=== PATIENT | female | born 1985 | race Caucasian/White ===

== ENCOUNTER 2017-11-24 06:45 | Inpatient (IN) | payer BC ==
[2017-11-24] VITALS (47 sets, daily range): BP systolic 111–146; BP diastolic 56–81
[~2017-11-24] VITALS: Ht 160 cm; Wt 83.9 kg
[~2017-11-24 06:45] MED LIST: ACHD5005 PO; BIRTH CONTROL PILL PO
[2017-11-24] MEDS ORDERED: D5 LR IV SOLUTION 1,000 ML IV ONE ×2 (07:12→18:11)
--- OUTSIDE RECORDS SUMMARY | 2017-11-24 07:17 | XMS REPORT | Continuity of Care Document ---
Author Author [facility] Organization [facility] Address Unknown Phone Unavailable Support Name Relationship Address Phone JENNIFER DASH Next Of Kin [id number] [place] [id number] Insurance Providers Payer Name Policy Number Subscriber Name Relationship [facility] [id number] Qi Dash 01 Self / Same As Patient Advance Directives Directive Response Recorded Date Advance Directives N 12/02/12 11:19am Health Care Power of Environmental Quality Analyst N 12/02/12 11:19am Organ Donor Y 12/02/12 11:19am Problems No Known Problems or Medical conditions. Allergies, Adverse Reactions, Alerts Allergen Type Severity Reaction Last Updated No Known Drug Allergies 11/30/12 Medications Medication Dose Units Route Sig Qty Days Acetaminophen/Hydrocodone Bitart (Lorcet 5/325 Mg) 1 Tab PO Q4H 30 [ Control Pill] 1 Tab PO HS Response Recorded Date/Time Status not known Unknown Results Test Date Result Interp. Ref. Range Alanine Aminotransferase (ALT/SGPT) September 02, 2005 9:00pm 32 U/L N 30-65 Albumin September 02, 2005 9:00pm 4.6 G/DL N 3.4-5.0 Alkaline Phosphatase September 02, 2005 9:00pm 83 U/L N 50-136 Aspartate Amino Transf (AST/SGOT) September 02, 2005 9:00pm 19 U/L N 15-37 BUN/Creatinine Ratio September 02, 2005 9:00pm 8 - Basophils # (Auto) November 30, 2012 10:35am 0.0 10^3/uL N 0.0-0.1 Basophils (%) (Auto) November 30, 2012 10:35am 1 % N 0-10 Blood Urea Nitrogen September 02, 2005 9:00pm 7 MG/DL N 7-18 Calcium Level September 02, 2005 9:00pm 9.2 MG/DL N 8.5-10.1 Carbon Dioxide Level September 02, 2005 9:00pm 28 MMOL/L N 21-32 Chloride Level September 02, 2005 9:00pm 98 MMOL/L L 101-110 Creatinine September 02, 2005 9:00pm 0.9 MG/ DL N 0.6-1.3 Eosinophils # (Auto) November 30, 2012 10:35am 0.2 10^3/uL N 0.0-0.3 Eosinophils (%) (Auto) November 30, 2012 10:35am 2 % N 0-10 Glucose Level September 02, 2005 9:00pm 96 MG /DL N 70-126 Hematocrit November 30, 2012 10:35am 39 % N 35-52 Hemoglobin November 30, 2012 10:35am 13.0 G/DL N 11.5-16.0 Lymphocytes # (Auto) November 30, 2012 10:35am 1.8 X 10^3 N 1.0-4.0 Lymphocytes (%) (Auto) November 30, 2012 10:35am 26 % N 12-44 Mean Corpuscular Hemoglobin November 30, 2012 10:35am 31 PG N 25-34 Mean Corpuscular Hemoglobin Concent November 30, 2012 10: 35am 33 G/DL N 32-36 Mean Corpuscular Volume November 30, 2012 10:35am 92 FL N 80-99 Mean Platelet Volume November 30, 2012 10:35am 10.6 FL H 7.4-10.4 Monocytes # (Auto) November 30, 2012 10:35am 0.6 X 10^3 N 0.0-1.0 Monocytes (%) (Auto) November 30, 2012 10:35am 9 % N 0-12 Neutrophils # (Auto) November 30, 2012 10:35am 4.3 X 10^3 N 1.8-7.8 Neutrophils (%) (Auto) November 30, 2012 10:35am 62 % N 42-75 Platelet Count November 30, 2012 10:35am 279 10^3/uL N 130-400 Potassium Level October 12, 2005 5:30pm 3.6 MMOL/L N 3.6-5.0 Red Blood Count November 30, 2012 10:35am 4.26 10^6/uL L 4.35-5.85 Red Cell Distribution Width November 30, 2012 10:35am 12.3 % N 10.0-14.5 Sodium Level September 02, 2005 9:00pm 139 MMOL/L N 135-145 Thyroid Stimulating Hormone (TSH) September 02, 2005 9:00pm 1.03 ULU/ML N 0.34-5.60 Thyroxine (T4) September 02, 2005 9:00pm See report - Total Bilirubin September 02, 2005 9:00pm 0.5 MG/DL N 0.0-1.0 Total Protein October 12, 2005 5:30pm 7.9 G/DL N 6.4-8.2 Urine Bacteria September 02, 2005 9:00pm Negative - Urine Bilirubin September 02, 2005 9:00pm Negative - Urine Casts September 02, 2005 9:00pm None - Urine Clarity September 02, 2005 9:00pm Clear - Urine Color September 02, 2005 9:00pm Straw - Urine Crystals September 02, 2005 9:00pm None - Urine Glucose (UA) September 02, 2005 9:00pm Negative - Urine Ketones September 02, 2005 9:00pm Negative - Urine Leukocyte Esterase September 02, 2005 9:00pm Negative - Urine Mucus September 02, 2005 9:00pm Negative - Urine Nitrate September 02, 2005 9:00pm Negative - Urine Protein September 02, 2005 9:00pm Negative - Urine RBC September 02, 2005 9:00pm None / HPF - Urine Specific [place] September 02, 2005 9:00pm 1.005 L - Urine Squamous Epithelial Cells September 02, 2005 9:00pm 0-2 - Urine Urobilinogen September 02, 2005 9:00pm Normal MG/DL - Urine WBC September 02, 2005 9:00pm Rare / HPF - Urine pH September 02, 2005 9:00pm 7.0 - Vitamin B12 Level September 02, 2005 9:00pm See report - White Blood Count November 30, 2012 10:35am 6.9 10^3/uL N 4.3-11.0 Procedures Procedure Code Date MRSA Screen 11/30/12 Encounters Encounter Location Date/Time Departed Emergency Room [facility] 12 :00am
--- OUTSIDE RECORDS SUMMARY | 2017-11-24 07:17 | XMS REPORT | Continuity of Care Document ---
Author Author [facility] Organization [facility] Address Unknown Phone Unavailable Allergies There is no data. Medications There is no data. Problems There is no data. Procedures There is no data. Results There is no data. Encounters ACCT No. Visit Date/Time Discharge Status Pt. Type Provider Facility Loc./Unit Complaint [id number] 12/02/2012 10:21:00 12/02/2012 15:27:00 DIS Outpatient [id number] 11/30/2012 10:08:00 11/30/2012 23:59:59 CLS Outpatient
[2017-11-24] MEDS: D5 LR IV SOLUTION 1,000 ML IV SCH ×2 (07:26→14:01)
[2017-11-24] MEDS ORDERED: OXYTOCIN/NORMAL SALINE 500 ML IV SCH (07:41)
--- NOTE | 2017-11-24 07:43 | OB Bishop Score ---
Oconnor Score 8 VELMA GOSS MD Nov 24, 2017 7:43 am
--- NOTE | 2017-11-24 07:46 | History & Physical ---
History and Physical Date Seen by Provider: Nov 24, 2017 Time Seen by Provider: 07:43 This patient is a 32-year-old G1 white female with an EDC of 10 [phone] putting her at 38 weeks gestation. She was seen in clinic yesterday and found with an STEPHANI of 281. A week earlier her STEPHANI had been in the 140s. She's had no other problems with this . She denies rupture membranes or bleeding. She feels an occasional contraction. She feel baby moving. Her GBS culture done after 35 weeks gestation was negative. She presents now for induction of labor. Allergies are none Medications are vitamins patient takes a medication for ulcerative colitis Medical social and surgical histories are per the antepartum record HEENT exam is normal Neck is supple no lymphadenopathy no thyromegaly Abdomen is gravid soft nontender nondistended Extremities show no clubbing cyanosis. There is no Homans sign. Pelvic exam yesterday clinic showed a cervix that was a little bit more than once immune dilated 50 percent effaced -1-0 station cervix was soft and anterior. This equates to a Oconnor score of 8 Lab work is pending monitor shows normal heart rate pattern with occasional contractions Assessment and plan 38 weeks' gestation in a patient with polyhydramnios fairly recent & onset patient is admitted now for induction of labor. Anticipation is for vaginal delivery although plans preparations are in place for if needed Allergies and Home Medications Allergies Coded Allergies: No Known Drug Allergies (Unverified , 11/30/12) Home Medications Hydrocodone Bit/Acetaminophen 1 Tab Tablet, 1 TAB PO Q4H, (Reported) [ Control Pill] , 1 TAB PO HS, (Reported) Patient Home Medication List Home Medication List Reviewed: Yes VELMA GOSS MD Nov 24, 2017 7:46 am
[2017-11-24 08:03] LABS: BASOPHILS % (AUTO) 0 % (0-10); EOSINOPHILS # (AUTO) 0.2 10^3/uL (0.0-0.3); EOSINOPHILS % (AUTO) 1 % (0-10); HEMATOCRIT 33 % (35-52); HEMOGLOBIN 11.6 G/DL (11.5-16.0); LYMPHOCYTES # (AUTO) 2.5 X 10^3 (1.0-4.0); LYMPHOCYTES % (AUTO) 20 % (12-44); MEAN CORPUSCULAR HEMOGLOBIN 32 PG (25-34); MEAN CORPUSCULAR HGB CONC 35 G/DL (32-36); MEAN CORPUSCULAR VOLUME 93 FL (80-99); MEAN PLATELET VOLUME 11.2 FL (7.4-10.4); MONOCYTES # (AUTO) 1.2 X 10^3 (0.0-1.0); MONOCYTES % (AUTO) 9 % (0-12); NEUTROPHILS # (AUTO) 8.8 X 10^3 (1.8-7.8); NEUTROPHILS % (AUTO) 69 % (42-75); PLATELET COUNT 309 10^3/uL (130-400); RED BLOOD COUNT 3.61 10^6/uL (4.35-5.85); RED CELL DISTRIBUTION WIDTH 13.4 % (10.0-14.5); WHITE BLOOD COUNT 12.7 10^3/uL (4.3-11.0)
[2017-11-24] MEDS ORDERED: ALPR0.5T PO (08:52)
[2017-11-24] MEDS ORDERED: MESA1.2T2 PO (08:52)
[2017-11-24] MEDS ORDERED: PREN1TAB86 PO (08:52)
[2017-11-24] MEDS ORDERED: CATHETER FLUSH 10 ML SYR IV PRN (09:30)
[2017-11-24] MEDS ORDERED: FLU QUADRIvalent (5+ YOA) 2018-2019 (AFLURIA) 0.5 ML IM ONE (09:30)
[2017-11-24] MEDS ORDERED: SUFENTA 0.6MCG/ML BUPIVA 0.125 100 ML ONE (11:20)
[2017-11-24] MEDS ORDERED: LACTATED RINGERS 1,000 ML IV ONE ×3 (11:20→19:19)
[2017-11-24] MEDS: LACTATED RINGERS 1,000 ML IV SCH ×2 (11:30→18:43)
[2017-11-24] MEDS ORDERED: fentaNYL INJECTION 100 MCG/2 ML AMP ONE ×2 (11:49→17:37)
[2017-11-24] MEDS ORDERED: BUPIVACAINE 0.25% 30 ML (SENSORCAINE) VIAL ONE (11:50)
[2017-11-24] MEDS ORDERED: ONDANSETRON 4 MG/2 ML (SDV) Z0FRAN IV PRN ×2 (13:00→19:30)
[2017-11-24] MEDS ORDERED: EPIDURAL (SUFENTA 0.6MCG/ML BUPIVA 0.125%) 100 ML BAG EPI PRN (13:00)
[2017-11-24] MEDS ORDERED: diphenhydrAMINE 50 MG/ML INJ (BENADRYL) IV PRN ×2 (13:00→19:30)
[2017-11-24] MEDS ORDERED: NALOXONE 0.4 MG/ML 1 ML (NARCAN) VIAL IV PRN ×4 (13:00→19:30)
[2017-11-24] MEDS ORDERED: METOCLOPRAMIDE INJ 10 MG/2 ML (REGLAN) IV PRN ×2 (13:00→19:30)
[2017-11-24] MEDS ORDERED: LACTATED RINGERS 1,000 ML IV PRN (17:22)
[2017-11-24] MEDS ORDERED: FAMOTIDINE 20MG/2ML IV (PEPCID) IV ONE (17:30)
[2017-11-24] MEDS ORDERED: METOCLOPRAMIDE INJ 10 MG/2 ML (REGLAN) IV ONE (17:30)
[2017-11-24] MEDS ORDERED: CITRIC ACID/SOB CIT (BICITRA) 30 ML UDC PO ONE (17:30)
[2017-11-24] MEDS ORDERED: ceFAZolin 2 GM IV Premixed 50 ML IV ONE (17:30)
[2017-11-24] MEDS ORDERED: metroNIDAZOLE 500MG/100ML IVPB 100 ML IV ONE (17:30)
[2017-11-24] MEDS ORDERED: OXYTOCIN/NORMAL SALINE 500 ML IV ONE ×2 (17:37→19:02)
[2017-11-24] MEDS ORDERED: BUPIVACAINE SPINAL 0.75% (SENSORCAINE) 2 ML AMP ONE (17:56)
[2017-11-24] MEDS ORDERED: LIDOCAINE PF 2% 5 ML (XYLOCAINE) VIAL ONE (17:56)
[2017-11-24] MEDS ORDERED: KETOROLAC 30 MG/ML VIAL ONE (17:59)
[2017-11-24] MEDS ORDERED: MEPERIDINE (DEMEROL) INJ 100 MG/ML IM PRN (18:15)
[2017-11-24] MEDS ORDERED: TETANUS,DIPTH,PERTUSS P/F (BOOSTRIX) 0.5 ML VIAL IM ONE (18:15)
[2017-11-24] MEDS ORDERED: PROMETHAZINE INJ 25 MG/ML (PHENERGAN) AMP IM PRN (18:15)
[2017-11-24] MEDS ORDERED: ONDANSETRON 4 MG/2 ML (SDV) Z0FRAN IVP PRN (18:15)
[2017-11-24] MEDS ORDERED: MEASLES,MUMPS,RUBELLA 1 EA INJ SC ONE (18:15)
[2017-11-24] MEDS: OXYTOCIN/NORMAL SALINE 500 ML IV SCH ×2 (19:25→23:10)
[2017-11-24] MEDS: KETOROLAC 30 MG/ML VIAL IVP SCH (19:26)
[2017-11-24] MEDS ORDERED: fentaNYL INJECTION 100 MCG/2 ML AMP INJ ONE (19:30)
[2017-11-24] MEDS: DOCUSATE SODIUM 100 MG (COLACE) CAP PO SCH (22:35)
[2017-11-24] MEDS: oxyCODONE/APAP 10/325MG (PERCOCET 10) TABLET PO PRN (22:35)
[2017-11-25 00:22] VITALS: BP 118/70
[2017-11-25] MEDS: KETOROLAC 30 MG/ML VIAL IVP SCH ×3 (00:22→13:15)
--- NOTE | 2017-11-25 00:27 | OPERATIVE REPORT ---
DATE OF SERVICE: 11/24/2017 PREOPERATIVE DIAGNOSIS: Term at 38 weeks gestation in labor with failure to progress/CPD. POSTOPERATIVE DIAGNOSIS: Term at 38 weeks gestation in labor with failure to progress/CPD with persistent OP. OPERATIVE PROCEDURE: Primary low transverse delivery of a viable female with Apgars of 7 and 9 at 1 and 5 minutes respectively, weight of 6 pounds 14 ounces. Cord blood gas with a pH of 7.26 and a time of 1847. OPERATIVE DESCRIPTION: With the patient in the supine position under satisfactory spinal analgesia, she was prepped and draped in usual fashion for abdominal surgery. Harris catheter had been placed in the urinary bladder during labor that was left to dependent drainage. A Pfannenstiel incision was made through the skin with a scalpel. The patient's abdomen was entered in the usual manner. Bladder retractor placed in position, clean scalpel used to make a 4 cm hysterotomy incision transversely across the lower uterine segment that was extended by blunt dissection as well. Small amount of clear fluid was released on hysterotomy. Pritchett forceps were applied to facilitate the delivery of a vigorous viable female infant. Infant had stats as noted above. The was delivered from a straight OP position. The infant was bulb suctioned on delivery of the head and again on completion of delivery. The umbilical cord was doubly clamped and cut and the infant passed to Gifty Hernandez, the pediatric nurse in attendance for delivery. Cord bloods were obtained. Placenta delivered spontaneously. It was somewhat lobular scalloped appearing placenta with several almost accessory lobes. It was otherwise normal with a 3-vessel cord. The uterus was exteriorized and to wipe clean with a wet laparotomy sponge. Uterine incision closed with a running locked suture of 2-0 Vicryl. Hemostasis was satisfactory. However, the uterus was quite atonic and a modified B-Villalta suture was placed using two #1 chromic sutures. This compressed the uterus nicely controlling blood loss. The uterus was returned to the abdominal cavity. All blood clot and debris was removed from the abdominal cavity. With sponge, needle counts correct, hemostasis assured. The anterior peritoneum was closed with a running suture of 2-0 Vicryl. Rectus muscles were closed with that suture as well. The rectus fascia was closed with 2-0 Vicryl, subcutaneous tissue was closed with 2-0 Vicryl and the skin was stapled. Sponge and needle counts were correct at the end of the procedure. Estimated blood loss for procedure was around 750 mL. The patient tolerated the procedure well and was transferred to the recovery room in stable condition. The had been taken stable to the full term nursery under the care of nurse Hernandez. Job ID: [id number] DocumentID: [id number] Dictated Date: 11/24/2017 19:13:49 Pace Analyst Date: 11/25/2017 00:26:55 Dictated By: VELMA GOSS MD
[2017-11-25] MEDS: oxyCODONE/APAP 10/325MG (PERCOCET 10) TABLET PO PRN ×4 (03:58→23:49)
[2017-11-25 04:00] VITALS: BP 116/70
--- NOTE | 2017-11-25 07:11 | Anesthesia-Regional Post-Op ---
Regional Patient Condition Mental Status: Alert, Oriented x3 Circulation: Same as Pre-Op Headache: Absent Sensation: Full Recovery Motor Block: Absent Post Op Complications Complications None Follow Up Care/Instructions Patient Instructions None needed. Anesthesia/Patient Condition Patient is doing well, no complaints, stable vital signs, no apparent adverse anesthesia problems. No complications reported per nursing. MAHAMED ABDULLAHI CRNA Nov 25, 2017 07:11
--- NOTE | 2017-11-25 07:48 | Progress Note-Standard ---
Standard Progress Note Progress Notes/Assess & Plan Date Seen by a Provider: Nov 25, 2017 Time Seen by a Provider: 07:47 Progress/Assessment & Plan This patient is without complaint. She is ambulating, voiding, tolerating oral intake well, has good pain control. Patient denies chest pain, denies shortness of breath, denies nausea vomiting, and denies headache. Vital Signs 11/25/17 04:00 Temp 98.6 Pulse 66 Resp 18 B/P (MAP) 116/70 (85) Pulse Ox 98 O2 Delivery Room Air Vital signs are stable. Patient is afebrile. Fundus is firm below the umbilicus and nontender. The surgical incision is clean dry and intact. Extremities show no clubbing cyanosis. There is no Homans sign. Assessment and plan postoperative day number 1 status post primary delivery doing well. Plan is for routine convalescence care today and consider discharge home tomorrow VELMA GOSS MD Nov 25, 2017 7:48 am
[2017-11-25] MEDS ORDERED: OXYC1TAB12 PO (07:51)
[2017-11-25] MEDS ORDERED: DOCU100C37 PO (07:51)
[2017-11-25] MEDS ORDERED: IBUP-1780 PO (07:51)
--- NOTE | 2017-11-25 07:51 | Discharge Instructions ---
Discharge Instructions Discharge Medications New, Converted or Re-Newed RX: RX on Chart Patient Instructions Patient Instructions: As directed Return to The Hospital For: As directed Activity & Diet Discharge Diet: No Restrictions Activity as Tolerated: No Orders-Post D/C & Referrals Follow Up Appt: RTC 1 week for incision check. Call to make follow up appt. for patient in 4 weeks. Wound Care: Remove sara, apply benzoin and steri strips. Activity Per routine post instructions. Diet as tolerated Patient may shower or tub bathe as desired. Continue home meds VELMA GOSS MD Nov 25, 2017 7:51 am
[2017-11-25 08:00] VITALS: BP 115/76
[2017-11-25] MEDS: DOCUSATE SODIUM 100 MG (COLACE) CAP PO SCH ×2 (10:37→20:45)
[2017-11-25 11:35] VITALS: BP 118/76
[2017-11-25] MEDS: IBUPROFEN 800 MG (MOTRIN) TAB PO SCH ×2 (15:20→20:45)
[2017-11-25 16:00] VITALS: BP 140/85
[2017-11-25] MEDS ORDERED: IBUPROFEN 800 MG (MOTRIN) TAB PO SCH (18:15)
[2017-11-25 20:45] VITALS: BP 130/76
[2017-11-26 03:15] VITALS: BP 123/81
[2017-11-26] MEDS: IBUPROFEN 800 MG (MOTRIN) TAB PO SCH ×2 (03:18→09:39)
[2017-11-26] MEDS: oxyCODONE/APAP 10/325MG (PERCOCET 10) TABLET PO PRN (06:28)
--- NOTE | 2017-11-26 07:35 | Progress Note-Standard ---
Standard Progress Note Progress Notes/Assess & Plan Date Seen by a Provider: Nov 26, 2017 Time Seen by a Provider: 07:33 Progress/Assessment & Plan This patient is without complaint. She is ambulating, voiding, tolerating oral intake well, has good pain control. Patient denies chest pain, denies shortness of breath, denies nausea vomiting, and denies headache. Vital Signs 11/25/17 04:00 Temp 98.6 Pulse 66 Resp 18 B/P (MAP) 116/70 (85) Pulse Ox 98 O2 Delivery Room Air Vital signs are stable. Patient is afebrile. Fundus is firm below the umbilicus and nontender. The surgical incision is clean dry and intact. Extremities show no clubbing cyanosis. There is no Homans sign. Assessment and plan postoperative day number 1 status post primary delivery doing well. Plan is for routine convalescence care today and consider discharge home tomorrow November 26, 2017 Patient is without complaint. She is ambulating, voiding, tolerating oral intake well has good pain control and is requesting discharge home. Vital Signs 11/26/17 03:15 Temp 98.4 Pulse 66 Resp 18 B/P (MAP) 123/81 (95) Pulse Ox 98 O2 Delivery Room Air Vital signs are stable. Patient is afebrile. The abdomen is benign. The surgical incision is clean dry and intact. Fundus is firm below the umbilicus nontender. Extremities show no clubbing cyanosis. There is no Homans sign. There is some pretibial pitting edema that is normal. Assessment and plan postoperative day number 2 status post primary delivery doing well. Plan is for discharge home with follow-up in clinic Final Diagnosis Term primary delivery/38 weeks gestation VELMA GOSS MD Nov 26, 2017 7:35 am
[2017-11-26] MEDS: DOCUSATE SODIUM 100 MG (COLACE) CAP PO SCH (09:39)
[2017-11-26 09:40] VITALS: BP 130/78
== END 2017-11-26 16:50 | disposition home or self-care (01) | DRG 775 ==
LOC: LDRP 06:45 → WS 20:15
PROVIDERS: ADMIT Obstetrics & Gynecology; ATTEND Obstetrics & Gynecology
PROC: 3E033VJ Introduction of Other Hormone into Peripheral Vein, Percutaneous Approach (ICD-10-PCS; 2017-11-24)
PROC: 10D07Z3 Extraction of Products of Conception, Low Forceps, Via Natural or Artificial Opening (ICD-10-PCS; principal; 2017-11-24 18:15)
DX: O40.3XX0 Polyhydramnios, third trimester, not applicable or unspecified (principal); O64.0XX0 Obstructed labor due to incomplete rotation of fetal head, not applicable or unspecified; O99.62 Diseases of the digestive system complicating childbirth; K51.90 Ulcerative colitis, unspecified, without complications; O62.2 Other uterine inertia; Z37.0 Single live birth; Z3A.38 38 weeks gestation of pregnancy
CPT/HCPCS: 36415; 85025; 86850; 86900; 86901; 94664

== ENCOUNTER 2017-12-07 15:10 | Outpatient (RCR) | payer BC ==
[~2017-12-07 15:10] MED LIST changes: +ALPR0.5T PO; +DOCU100C37 PO; +IBUP-1780 PO; +MESA1.2T2 PO; +OXYC1TAB12 PO; +PREN1TAB86 PO
== END 2018-03-07 | disposition home or self-care (01) ==
LOC: EDSTATUS 15:10 → WSo 15:10
PROVIDERS: ATTEND Pediatrics
DX: Z39.1 Encounter for care and examination of lactating mother (principal)
CPT/HCPCS: 99211

== ENCOUNTER 2022-02-17 14:24 | Outpatient (CLI) | payer BC ==
[~2022-02-17] VITALS: Ht 160 cm; Wt 84.1 kg
[2022-02-17] MEDS ORDERED: PNV1TABL9 PO (14:35)
[2022-02-17] MEDS ORDERED: MESA1.2T3 PO (14:35)
== END 2022-02-17 14:43 ==
LOC: PREOP 14:24
PROVIDERS: ATTEND Obstetrics & Gynecology
DX: Z01.818 Encounter for other preprocedural examination (principal)

== ENCOUNTER 2022-02-24 09:55 | Inpatient (IN) | payer BC ==
[2022-02-24] VITALS (11 sets, daily range): BP systolic 101–133; BP diastolic 60–82
[~2022-02-24] VITALS: Ht 160 cm; Wt 84.1 kg
[~2022-02-24 09:55] MED LIST changes: +MESA1.2T3 PO; +PNV1TABL9 PO
[2022-02-24] MEDS ORDERED: D5 LR IV SOLUTION 1,000 ML IV SCH ×2 (10:15→12:45)
[2022-02-24] MEDS ORDERED: ceFAZolin INJECTION 2,000 MG in NS (IVPB) 50 ML IV ONE (10:15)
[2022-02-24] MEDS ORDERED: metroNIDAZOLE 500MG/100ML IVPB 100 ML IV ONE (10:15)
--- NOTE | 2022-02-24 10:15 | History & Physical ---
History and Physical Date Seen by Provider: Feb 24, 2022 Time Seen by Provider: 11:48 This patient is a 36-year-old 3 para 1 A1 1 female currently at 37-6/7 weeks gestation. Her is complicated by PIH and by ulcerative colitis for which she takes mesalamine daily. She presents for repeat delivery. She has had some flares in her ulcerative colitis with is currently relatively stable. Her blood pressures have been mildly labile throughout the . Plan is for delivery now so the patient can follow-up with her GI physician in regard to her UC. Patient GBS culture was negative after 35 weeks gestation. Patient denies rupture membranes or bleeding. Allergies are none Medications are vitamins and mesalamine and folic acid Medical social and surgical histories are per the antepartum record HEENT exam is normal Neck is supple no lymphadenopathy no thyromegaly Abdomen is gravid soft nontender nondistended Extremities show no clubbing cyanosis. There is no Homans' sign. Pelvic exam is deferred Assessment and plan 37-6/7 weeks gestation in a patient with symptomatic ulcerative colitis. Plan is to proceed with delivery so the patient can follow-up with her GI physician for evaluation and management. Surgical risks complications recovery and follow-up have been discussed. All the patient's questions have been answered 37 6/7 weeks gestation with previous and with PIH and ulcerative colitis Allergies and Home Medications Allergies Coded Allergies: No Known Drug Allergies (Unverified , 02/17/22) Patient Home Medication List Home Medication List Reviewed: Yes Docusate Sodium (Docusate Sodium) 100 Mg Capsule, 100 MG PO BID Prescribed by: VELMA MELGAR on 02/25/22 0753 Ibuprofen (Ibuprofen) 800 Mg Tablet, 800 MG PO Q6H Prescribed by: VELMA MELGAR on 02/25/22 0753 Mesalamine (Mesalamine) 1.2 Gram Tablet., 2.4 GM PO BID, (Reported) Entered as Reported by: MICHAEL LIANG on 02/17/22 1435 Oxycodone HCl/Acetaminophen (Percocet 10-325 mg Tablet) 1 Each Tablet, 1 TAB PO Q6H PRN for PAIN-MODERATE (5-7) Prescribed by: VELMA MELGAR on 02/25/22 0753 Pnv Cmb#21/Iron/Folic Acid ( Complete Caplet) 14 Mg Iron-400 Mcg Tablet, 1 EACH PO UD, (Reported) Entered as Reported by: MICHAEL LIANG on 02/17/22 1435 VELMA GOSS MD Feb 24, 2022 10:15
[2022-02-24 10:58] LABS: BASOPHILS # (AUTO) 0.1 10^3/uL (0.0-0.1); BASOPHILS % (AUTO) 1 % (0-10); EOSINOPHILS # (AUTO) 0.2 10^3/uL (0.0-0.3); EOSINOPHILS % (AUTO) 1 % (0-10); HEMATOCRIT 37 % (35-52); HEMOGLOBIN 12.2 g/dL (11.5-16.0); LYMPHOCYTES # (AUTO) 2.9 10^3/uL (1.0-4.0); LYMPHOCYTES % (AUTO) 20 % (12-44); MEAN CORPUSCULAR HEMOGLOBIN 30 pg (25-34); MEAN CORPUSCULAR HGB CONC 33 g/dL (32-36); MEAN CORPUSCULAR VOLUME 91 fL (80-99); MONOCYTES % (AUTO) 7 % (0-12); NEUTROPHILS % (AUTO) 70 % (42-75); PLATELET COUNT 321 10^3/uL (130-400); WHITE BLOOD COUNT 14.3 10^3/uL (4.3-11.0)
[2022-02-24] MEDS ORDERED: LACTATED RINGERS 1,000 ML IV PRN ×2 (11:15)
[2022-02-24] MEDS ORDERED: CITRIC ACID/SOB CIT (BICITRA) 30 ML UDC PO ONE (11:15)
[2022-02-24] MEDS ORDERED: METOCLOPRAMIDE INJ 10 MG/2 ML (REGLAN) IV ONE (11:15)
[2022-02-24] MEDS ORDERED: FAMOTIDINE 20MG/2ML IV (PEPCID) IV ONE (11:15)
[2022-02-24] MEDS ORDERED: CATHETER FLUSH 10 ML SYR IV PRN (11:15)
[2022-02-24] MEDS ORDERED: fentaNYL INJ 100 MCG/2 ML AMP ONE (11:42)
[2022-02-24] MEDS ORDERED: OXYTOCIN PRE-MIX DRIP 1,000 ML IV ONE (11:42)
[2022-02-24] MEDS ORDERED: ONDANSETRON 4 MG/2 ML (SDV) Z0FRAN ONE (11:42)
[2022-02-24] MEDS ORDERED: BUPIVACAINE 0.5% 30 ML (SENSORCAINE) VIAL ONE (12:21)
[2022-02-24] MEDS ORDERED: PHENYLEPHRINE 100 MCG/ML 10 ML (ANESTHESIA) SYR ONE (12:26)
[2022-02-24] MEDS ORDERED: TETANUS,DIPTH,PERTUSS P/F (BOOSTRIX) 0.5 ML VIAL IM ONE (12:45)
[2022-02-24] MEDS ORDERED: NALOXONE 0.4 MG/ML 1 ML (NARCAN) VIAL IV PRN (12:45)
[2022-02-24] MEDS ORDERED: PROMETHAZINE INJ 25 MG/ML (PHENERGAN) AMP IM PRN (12:45)
[2022-02-24] MEDS ORDERED: MEPERIDINE (DEMEROL) INJ 100 MG/ML IM PRN (12:45)
[2022-02-24] MEDS ORDERED: OXYTOCIN PRE-MIX DRIP 500 ML IV SCH (12:45)
[2022-02-24] MEDS: KETOROLAC 30 MG/ML VIAL IV SCH ×2 (15:18→21:03)
[2022-02-24] MEDS: oxyCODONE/APAP 10/325MG (PERCOCET 10) TABLET PO PRN ×2 (15:18→21:04)
[2022-02-24] MEDS: DOCUSATE SODIUM 100 MG (COLACE) CAP PO SCH (20:16)
--- NOTE | 2022-02-24 22:22 | OPERATIVE REPORT ---
DATE OF SERVICE: 02/24/2022 PREOPERATIVE DIAGNOSIS: Term at 37 and 6/7th weeks' gestation in a patient with previous and history of ulcerative colitis. POSTOPERATIVE DIAGNOSIS: Term at 37 and 6/7th weeks' gestation in a patient with previous and history of ulcerative colitis. OPERATIVE PROCEDURE: Repeat low transverse delivery of a viable female with Apgars of 8 and 9 at 1 and 5 minutes respectively, weight of 7 pounds 13 ounces. Cord blood pH of 7.28 and the time of 12:22. DESCRIPTION OF PROCEDURE: With the patient in the supine position, under satisfactory general anesthesia, she was repositioned supine and prepped and draped in the usual fashion for abdominal surgery. Harris catheter was placed in the urinary bladder. A repeat Pfannenstiel incision was made through the skin with a scalpel and the patient's abdomen entered in the usual manner. Bladder retractor placed in position. Clean scalpel used to make an opening across a 2 x 8 cm uterine window that was comprised of the membranes and peritoneum only. Copious clear fluid released on hysterotomy. That incision was extended bluntly and a vigorous viable female infant was delivered via uterine incision in the usual manner. was bulb suctioned on delivery of the head, a nuchal cord was easily released. Delivery completed and baby bulb suctioned again while the cord was doubly clamped and cut. The was passed to the pediatric nurse in attendance for delivery. Cord bloods were obtained. Placenta delivered spontaneously [place]. It had an accessory lobe and had a nodule of what appeared to be placental tissue that was somewhat discrete and separate from the balance of the placenta and actually came out of the uterus independently. All of that was sent to pathology for permanent section. Uterus was exteriorized and the interior wiped clean with a wet laparotomy sponge. Uterine incision closed with a running locked suture of 2-0 Vicryl, care was taken to ensure obliteration of the uterine window. The uterus was now returned to the abdominal cavity. All blood clot and debris removed from the abdominal cavity. Sponge and needle counts were correct. Hemostasis assured. Anterior parietoperitoneum was closed with a running suture of 2-0 Vicryl. Rectus muscles were closed with that suture as well. The rectus fascia was closed with 2-0 Vicryl. Subcutaneous tissue was closed with 2-0 Vicryl and the skin was stapled. Sponge and needle counts were correct on completion of the procedure. Blood loss was around 350 mL. The patient tolerated the procedure well and was transferred to the recovery room in stable condition. had been taken to the bedside warmer and remained in proximity of the patient. Job ID: [id number] DocumentID: [id number] Dictated Date: 02/24/2022 13:03:14 Clearance Diver Date: 02/24/2022 22:20:00 Dictated By: VELMA GOSS MD
[2022-02-25] MEDS ORDERED: IBUPROFEN 800 MG (MOTRIN) TAB PO ONE (03:04)
[2022-02-25] MEDS: oxyCODONE/APAP 10/325MG (PERCOCET 10) TABLET PO PRN ×4 (03:09→20:22)
[2022-02-25 03:10] VITALS: BP 119/67
--- NOTE | 2022-02-25 07:52 | Progress Note ---
Standard Progress Note Progress Notes/Assess & Plan Date Seen by a Provider: Feb 25, 2022 Time Seen by a Provider: 07:51 Progress/Assessment & Plan This patient is without complaint. She is ambulating, voiding, tolerating oral intake well has good pain control. Vital Signs Date Time Temp Pulse Resp B/P (MAP) Pulse Ox O2 Delivery O2 Flow Rate FiO2 02/25/22 03:10 36.8 77 16 119/67 (84) 96 Room Air 02/24/22 23:50 36.9 73 16 129/61 (83) 96 Room Air 02/24/22 20:15 36.9 80 16 128/61 (83) 96 Room Air 02/24/22 18:00 37.2 84 18 118/63 (81) 97 Room Air 02/24/22 14:51 Room Air 02/24/22 14:00 37.0 69 18 117/68 (84) 97 Room Air 02/24/22 13:41 Room Air 02/24/22 13:41 36.4 16 02/24/22 13:30 36.5 16 122/72 (89) 97 02/24/22 13:30 Room Air 02/24/22 13:15 36.4 56 119/72 (88) 97 02/24/22 13:15 Room Air 02/24/22 13:00 36.6 16 105/62 (76) 97 02/24/22 13:00 Room Air 02/24/22 12:50 Room Air 02/24/22 12:50 36.3 16 101/60 (74) 97 Room Air 02/24/22 11:54 75 18 121/74 (90) 97 Room Air 02/24/22 10:15 36.9 75 18 97 Room Air 02/24/22 10:13 36.9 75 18 133/82 (99) 97 Room Air I & O 02/25/22 07:00 Intake Total 7170 ml Output Total 3820 ml Balance 3350 ml Vital signs are stable. Patient is afebrile. The abdomen is benign. Fundus is firm below the umbilicus and nontender. Extremities show no clubbing cyanosis. There is no Homans' sign. Assessment and plan Postoperative day #1 status post repeat delivery at 37-6/7 weeks gestation. Patient and baby are doing well. Patient will have routine convalescent care VELMA GOSS MD Feb 25, 2022 07:51
[2022-02-25] MEDS ORDERED: IBUP-1780 PO (07:53)
[2022-02-25] MEDS ORDERED: DOCU100C37 PO (07:53)
[2022-02-25] MEDS ORDERED: OXYC1TAB12 PO (07:53)
--- NOTE | 2022-02-25 07:54 | Discharge Inst-Surgical ---
Discharge Inst-Surgical Depart Medication/Instructions New, Converted or Re-Newed RX: Transmitted to Pharmacy Consults/Follow Up Orders & Referrals Follow Up Appt: RTC 1 week for incision check. Call to make follow up appt. for patient in 4 weeks. Wound Care: Remove sara, apply benzoin and steri strips. Activity Per routine post instructions. Please call in RX to patient pharmacy.Diet as tolerated Patient may shower or tub bathe as desired. Continue home meds Activity Activity as Tolerated: No Diet Discharge Diet: No Restrictions VELMA GOSS MD Feb 25, 2022 07:54
--- NOTE | 2022-02-25 08:02 | Anesthesia-Regional Post-Op ---
Regional Patient Condition Mental Status: Alert, Oriented x3 Circulation: Same as Pre-Op Headache: Absent Sensation: Full Recovery Motor Block: Absent Post Op Complications Complications None Follow Up Care/Instructions Patient Instructions None needed. Anesthesia/Patient Condition Patient is doing well, no complaints, stable vital signs, no apparent adverse anesthesia problems. No complications reported per nursing. IZABELA POP CRNA Feb 25, 2022 08:02
[2022-02-25 09:30] VITALS: BP 123/70
[2022-02-25] MEDS: DOCUSATE SODIUM 100 MG (COLACE) CAP PO SCH ×2 (09:42→19:44)
[2022-02-25] MEDS ORDERED: IBUPROFEN 800 MG (MOTRIN) TAB PO SCH ×2 (09:45→12:45)
[2022-02-25] MEDS: SIMETHICONE 80 MG (MYLICON) CHEW PO PRN ×2 (09:55→14:32)
[2022-02-25] MEDS: IBUPROFEN 800 MG (MOTRIN) TAB PO SCH ×2 (11:53→17:57)
[2022-02-25 13:45] VITALS: BP 118/71
[2022-02-25 17:55] VITALS: BP 138/82
[2022-02-25 19:40] VITALS: BP 124/79
[2022-02-26 00:15] VITALS: BP 124/74
[2022-02-26] MEDS: IBUPROFEN 800 MG (MOTRIN) TAB PO SCH ×3 (00:15→11:59)
[2022-02-26] MEDS: oxyCODONE/APAP 10/325MG (PERCOCET 10) TABLET PO PRN ×3 (00:40→11:59)
[2022-02-26 06:10] VITALS: BP 119/73
--- NOTE | 2022-02-26 07:59 | Progress Note ---
Standard Progress Note Progress Notes/Assess & Plan Date Seen by a Provider: Feb 26, 2022 Time Seen by a Provider: 07:58 Progress/Assessment & Plan This patient is without complaint. She is ambulating, voiding, tolerating oral intake well has good pain control. Vital Signs Date Time Temp Pulse Resp B/P (MAP) Pulse Ox O2 Delivery O2 Flow Rate FiO2 02/25/22 03:10 36.8 77 16 119/67 (84) 96 Room Air 02/24/22 23:50 36.9 73 16 129/61 (83) 96 Room Air 02/24/22 20:15 36.9 80 16 128/61 (83) 96 Room Air 02/24/22 18:00 37.2 84 18 118/63 (81) 97 Room Air 02/24/22 14:51 Room Air 02/24/22 14:00 37.0 69 18 117/68 (84) 97 Room Air 02/24/22 13:41 Room Air 02/24/22 13:41 36.4 16 02/24/22 13:30 36.5 16 122/72 (89) 97 02/24/22 13:30 Room Air 02/24/22 13:15 36.4 56 119/72 (88) 97 02/24/22 13:15 Room Air 02/24/22 13:00 36.6 16 105/62 (76) 97 02/24/22 13:00 Room Air 02/24/22 12:50 Room Air 02/24/22 12:50 36.3 16 101/60 (74) 97 Room Air 02/24/22 11:54 75 18 121/74 (90) 97 Room Air 02/24/22 10:15 36.9 75 18 97 Room Air 02/24/22 10:13 36.9 75 18 133/82 (99) 97 Room Air I & O 02/25/22 07:00 Intake Total 7170 ml Output Total 3820 ml Balance 3350 ml Vital signs are stable. Patient is afebrile. The abdomen is benign. Fundus is firm below the umbilicus and nontender. Extremities show no clubbing cyanosis. There is no Homans' sign. Assessment and plan Postoperative day #1 status post repeat delivery at 37-6/7 weeks gestation. Patient and baby are doing well. Patient will have routine convalescent care February 26, 2022 Patient is without complaint. She is ambulating, voiding, tolerating oral intake well and has good pain control. Patient is requesting discharge home. Vital Signs Date Time Temp Pulse Resp B/P (MAP) Pulse Ox O2 Delivery O2 Flow Rate FiO2 02/26/22 06:10 36.3 65 16 119/73 (88) 98 Room Air 02/26/22 00:15 36.8 72 16 124/74 (91) 98 Room Air 02/25/22 19:40 36.0 72 16 124/79 (94) 98 Room Air 02/25/22 17:55 36.5 69 18 138/82 (100) 98 Room Air 02/25/22 13:45 36.6 71 18 118/71 (87) 98 Room Air 02/25/22 09:30 36.6 68 18 123/70 (87) 97 Room Air Vital signs are stable. Patient is afebrile. The abdomen is benign. The fundus is firm below the umbilicus and nontender. Extremities show no clubbing or cyanosis. There is no Homans' sign. Assessment and plan Post operative day #2 status post repeat delivery doing well. Plan is for discharge home with follow-up in clinic Final Diagnosis 37+ weeks repeat VELMA GOSS MD Feb 26, 2022 07:59
[2022-02-26 10:23] VITALS: BP 133/83
[2022-02-26] MEDS: DOCUSATE SODIUM 100 MG (COLACE) CAP PO SCH (11:59)
== END 2022-02-26 12:30 | disposition home or self-care (01) | DRG 787 ==
LOC: LDRP 09:55
PROVIDERS: ADMIT Obstetrics & Gynecology; ATTEND Obstetrics & Gynecology
PROC: 10D00Z1 Extraction of Products of Conception, Low, Open Approach (ICD-10-PCS; principal; 2022-02-24 12:01)
DX: O34.211 Maternal care for low transverse scar from previous cesarean delivery (principal); K51.90 Ulcerative colitis, unspecified, without complications; O99.62 Diseases of the digestive system complicating childbirth; Z3A.37 37 weeks gestation of pregnancy; Z37.0 Single live birth; O13.4 Gestational [pregnancy-induced] hypertension without significant proteinuria, complicating childbirth
CPT/HCPCS: 36415; 85025; 86850; 86900; 86901; 87081; 94664

== ENCOUNTER 2022-05-05 05:33 | Outpatient (CLI) | payer BC ==
[~2022-05-05] VITALS: Ht 160 cm; Wt 68.2 kg
== END 2022-05-05 13:54 | disposition home or self-care (01) ==
LOC: PREOP 05:33
PROVIDERS: ATTEND Otolaryngology Otolaryngology/Facial Plastic Surgery
DX: Z01.818 Encounter for other preprocedural examination (principal)

== ENCOUNTER 2022-05-08 10:18 | Day surgery (SDC) | payer BC ==
[2022-05-08] VITALS (11 sets, daily range): BP systolic 100–130; BP diastolic 57–88
[~2022-05-08] VITALS: Ht 160 cm; Wt 68.2 kg
[2022-05-08] MEDS ORDERED: FAMOTIDINE 20MG/2ML IV (PEPCID) IV ONE (10:30)
[2022-05-08] MEDS ORDERED: LACTATED RINGERS 1,000 ML IV PRN (10:30)
[2022-05-08] MEDS ORDERED: ONDANSETRON 4 MG/2 ML (SDV) Z0FRAN IV ONE (10:30)
[2022-05-08] MEDS ORDERED: SCOPOLAMINE 1.5 MG (TRANSDERM-SCOP) PATCH TOP ONE (10:30)
[2022-05-08] MEDS ORDERED: fentaNYL INJ 100 MCG/2 ML AMP ONE (11:08)
[2022-05-08] MEDS ORDERED: LIDOCAINE PF 2% 5 ML (XYLOCAINE) VIAL ONE (11:08)
[2022-05-08] MEDS ORDERED: proPOfol 200 MG/20 ML (DIPRIVAN) VIAL IV ONE (11:08)
[2022-05-08] MEDS ORDERED: ONDANSETRON 4 MG/2 ML (SDV) Z0FRAN ONE (11:08)
[2022-05-08] MEDS ORDERED: MIDAZOLAM 2 MG/2 ML (VERSED) VIAL ONE (11:08)
[2022-05-08 11:29] LABS: BASOPHILS # (AUTO) 0.1 10^3/uL (0.0-0.1); BASOPHILS % (AUTO) 1 % (0-10); EOSINOPHILS # (AUTO) 0.5 10^3/uL (0.0-0.3); EOSINOPHILS % (AUTO) 6 % (0-10); HEMATOCRIT 40 % (35-52); HEMOGLOBIN 13.1 g/dL (11.5-16.0); LYMPHOCYTES # (AUTO) 2.6 10^3/uL (1.0-4.0); LYMPHOCYTES % (AUTO) 34 % (12-44); MEAN CORPUSCULAR HEMOGLOBIN 30 pg (25-34); MEAN CORPUSCULAR HGB CONC 33 g/dL (32-36); MEAN CORPUSCULAR VOLUME 91 fL (80-99); MEAN PLATELET VOLUME 9.8 fL (9.0-12.2); MONOCYTES # (AUTO) 0.8 10^3/uL (0.0-1.0); MONOCYTES % (AUTO) 10 % (0-12); NEUTROPHILS # (AUTO) 3.6 10^3/uL (1.8-7.8); NEUTROPHILS % (AUTO) 48 % (42-75); PLATELET COUNT 366 10^3/uL (130-400); WHITE BLOOD COUNT 7.5 10^3/uL (4.3-11.0)
--- NOTE | 2022-05-08 11:39 | Progress Note-Pre Operative ---
Pre-Operative Progress Note Date of Available H&P: May 08, 2022 Date H&P Reviewed: May 08, 2022 Time H&P Reviewed: 11:00 History & Physical: H&P Reviewed, Patient Examed, No changes noted Changes from last HP none Pre-Operative Diagnosis: Chronic Tons LEVY CALHOUN MD May 08, 2022 11:39
--- NOTE | 2022-05-08 11:40 | Progress Note-Post Operative ---
Post-Operative Progess Note Surgeon (s)/Hand Plug Shaper (s) Surgeon LEVY CALHOUN MD Hand Plug Shaper n/a Pre-Operative Diagnosis Chronic Tons Post-Operative Diagnosis same Post-Op Procedure Note Date of Procedure: May 08, 2022 Name of Procedure Performed: Tonsillectomy Description & Findings Description and Findings: n/a Anesthesia Type get Estimated Blood Loss minimal Packing none. Specimen(s) collected/removed tonsils LEVY CALHOUN MD May 08, 2022 11:40
[2022-05-08] MEDS ORDERED: APAP 325 MG/10.15 ML LIQ (TYLENOL) UDC PO PRN (11:45)
[2022-05-08] MEDS ORDERED: oxyCODONE 5 MG/5 ML ORAL SOLN (roxiCODONE) 5 ML UDC PO PRN (11:45)
[2022-05-08] MEDS ORDERED: NS IV 1000 ML 1,000 ML IV SCH (11:45)
[2022-05-08] MEDS ORDERED: SEVOFLURANE (ULTANE) 15 ML INHAL SOLN ONE (12:02)
[2022-05-08] MEDS ORDERED: morphine INJ 10 MG/ML 1ML (SYR OR VIAL) IVP ONE (12:30)
[2022-05-08] MEDS ORDERED: MEPERIDINE (DEMEROL) INJ 50 MG/ML IVP ONE (12:30)
[2022-05-08] MEDS ORDERED: ONDANSETRON 4 MG/2 ML (SDV) Z0FRAN IVP PRN (12:30)
--- NOTE | 2022-05-08 12:51 | Anesthesia-General Post-Op ---
General Patient Condition Mental Status/LOC: Same as Preop Cardiovascular: Satisfactory Nausea/Vomiting: Absent Respiratory: Satisfactory Pain: Controlled Complications: Absent Post Op Complications Complications None Follow Up Care/Instructions Patient Instructions None needed. Anesthesia/Patient Condition Patient Condition Patient is doing well, no complaints, stable vital signs, no apparent adverse anesthesia problems. No complications reported per nursing. MIRI APARICIO CRNA May 08, 2022 12:51
== END 2022-05-08 15:15 | disposition home or self-care (01) ==
LOC: SDC 10:18
PROVIDERS: ATTEND Otolaryngology Otolaryngology/Facial Plastic Surgery
DX: J35.01 Chronic tonsillitis (principal); Z28.310 Unvaccinated for COVID-19
CPT/HCPCS: 36415; 84703; 85025; 87081

== ENCOUNTER 2022-05-22 06:53 | Emergency (ER) | payer BC ==
[~2022-05-22] VITALS: Ht 162 cm; Wt 68.2 kg
--- NOTE | 2022-05-22 07:09 | ED EENT ---
History of Present Illness General Chief Complaint: Oral/Throat Problems Stated Complaint: POST OP TONSILLECTOMY BLEEDING Source: patient, family () Exam Limitations: no limitations History of Present Illness Date Seen by Provider: May 22, 2022 Time Seen by Provider: 07:08 Initial Comments Qi is a 37-year-old female who presents to the emergency department with a chief complaint of postop tonsillectomy bleeding. She woke up at 4:00 with bleeding and states she was able to get it under control at home for a little while. She was sucking on ice chips and rinsing with cold water. As the morning progressed she started developing more and more bleeding. [place] like she was "choking". She had her tonsils removed on 05-09-2023. No chronic medical conditions. She does not have heavy menstrual cycles. She is quite pale at presentation, tachycardic at 124. Spitting up mild to moderate amounts of bright red blood. "Hot potato voice". Denies nausea. Shortly after my initial assessment and identifying a very large clot in the right tonsillar fossa I had her gargle with a little ice water which dislodge some of the clot. She was able to spit it out. Immediate reevaluation shows clear tonsillar fossa no active bleeding is identified. She is gently gargling ice water feels better. Voice is improved. Conjunctivee and skin quite pale. Will place IV and check CBC. Timing/Duration: abrupt (0) Severity: moderate Location: throat Prearrival Treatment: other (Ice water) Associated Symptoms: denies symptoms Allergies and Home Medications Allergies Coded Allergies: No Known Drug Allergies (Unverified , 05/08/22) Patient Home Medication List Home Medication List Reviewed: Yes Mesalamine (Mesalamine) 1.2 Gram Tablet., 2.4 GM PO BID, (Reported) Entered as Reported by: MICHAEL LIANG on 02/17/22 9739 Review of Systems Review of Systems Constitutional: see HPI Ears: No Symptoms Reported Nose: no symptoms reported Throat: pain, muffled, painful swallowing, other (bleeding) Respiratory: no symptoms reported Cardiovascular: no symptoms reported Gastrointestinal: No nausea Neurological: Anxiety Past [id number] Hx Immunizations Up To Date PED Vaccines UTD: Yes Seasonal Allergies Seasonal Allergies: No Past Medical History Surgeries: Yes (Polypectomy 2013) Section Respiratory: No Cardiac: No Neurological: No Reproductive Disorders: Yes (DUB) Female Reproductive Disorders: Polycystic Ovarian Dis Sexually Transmitted Disease: Yes (HPV) HIV/AIDS: No Genitourinary: No Gastrointestinal: Yes (ulcerative colitis) Colitis Musculoskeletal: No Endocrine: No HEENT: No Loss of Vision: Denies Hearing Impairment: Denies Cancer: No Psychosocial: Yes Anxiety Integumentary: No Blood Disorders: No Adverse Reaction/Blood Tranf: No Family Medical History Arthritis 19 MOTHER Cardiovascular disease 19 FATHER Completed stroke 19 FATHER, Onset:50's - 60 FH: COPD (chronic obstructive pulmonary disease) 19 FATHER FH: lupus 19 MOTHER Hypercholesterolemia 19 FATHER Hypertension 19 FATHER Myocardial infarction 19 FATHER Neoplasm Grandparents (Paternal Grandmother) Osteoporosis 19 MOTHER Physical Exam Vital Signs Vital Signs - First Documented 05/22/22 07:06 Temp 35.8 Pulse 126 Resp 20 B/P (MAP) 129/83 (98) Pulse Ox 100 O2 Delivery Room Air Height, Weight, BMI Height: 5'3.00" Weight: 6lbs. 10.9oz. 3.891947ox; 26.64 BMI Method: General Appearance: WD/WN, mild distress, other (anxious) Ears: bilateral ear auricle normal Nose: normal inspection Mouth/Throat: other (large clot right tonsillar fossa no active bleeding. Patient gagged out a large clot. continuing to rince with ice water. Bleeding seems controlled at this moment) Neck: supple Cardiovascular: regular rate, rhythm, tachycardia (120) Respiratory: normal breath sounds, no respiratory distress Neurologic/Psychiatric: alert, oriented x 3 Skin: warm/dry, pallor Progress/Results/Core Measures Results/Orders Lab Results Laboratory Tests Test 05/22/22 07:20 Range/Units White Blood Count 8.8 4.3-11.0 10^3/uL Red Blood Count 4.10 3.80-5.11 10^6/uL Hemoglobin 12.3 11.5-16.0 g/dL Hematocrit 38 35-52 % Mean Corpuscular Volume 92 80-99 fL Mean Corpuscular Hemoglobin 30 25-34 pg Mean Corpuscular Hemoglobin Concent 33 32-36 g/dL Red Cell Distribution Width 14.1 10.0-14.5 % Platelet Count 388 130-400 10^3/uL Mean Platelet Volume 9.5 9.0-12.2 fL Immature Granulocyte % (Auto) 0 % Neutrophils (%) (Auto) 62 42-75 % Lymphocytes (%) (Auto) 27 12-44 % Monocytes (%) (Auto) 7 0-12 % Eosinophils (%) (Auto) 3 0-10 % Basophils (%) (Auto) 1 0-10 % Neutrophils # (Auto) 5.4 1.8-7.8 10^3/uL Lymphocytes # (Auto) 2.4 1.0-4.0 10^3/uL Monocytes # (Auto) 0.6 0.0-1.0 10^3/uL Eosinophils # (Auto) 0.3 0.0-0.3 10^3/uL Basophils # (Auto) 0.1 0.0-0.1 10^3/uL Immature Granulocyte # (Auto) 0.0 0.0-0.1 10^3/uL My Orders Orders - MORALES HUBER MD Ed Iv/Invasive Line Start (05/22/22 07:17) Cbc With Automated Diff (05/22/22 07:17) Ondansetron Injection (Zofran Injectio (05/22/22 07:30) Ed Iv/Invasive Line Start (05/22/22 07:37) Ns Iv 1000 Ml (Sodium Chloride 0.9%) (05/22/22 07:45) Ns Iv 1000 Ml (Sodium Chloride 0.9%) (05/22/22 07:38) Medications Given in ED Current Medications Medications Dose Ordered Sig/Crystal Route Start Time Stop Time Status Last Admin Dose Admin Ondansetron HCl 4 mg ONCE ONCE IVP 05/22/22 07:30 05/22/22 07:31 DC 05/22/22 07:22 4 MG Vital Signs/I&O 05/22/22 07:06 Temp 35.8 Pulse 126 Resp 20 B/P (MAP) 129/83 (98) Pulse Ox 100 O2 Delivery Room Air Progress Progress Note : Time: 08:17 Progress Note Patient with frequent reassessments. Had residual small clot far lateral right tonsillar fossa after clearing intitial large clot from posterior pharynx (right side). HR down to 60-70. Looks much better. CBC shows Hgb 12. Encouraged to continue intermittent ice water rinses. Stool softeners as she is a little constipated. Given zofran and 1L NS in department. Feels much better. No emergent concerns for consultation with Dr Evans. Departure Impression Primary Impression: Hemorrhage following tonsillectomy Disposition: 01 HOME, SELF-CARE Condition: Improved Departure-Patient Inst. Decision time for Depature: 08:19 Referrals: LEVY EVANS MD NO,LOCAL PHYSICIAN (PCP) Primary Care Physician Patient Instructions: Tonsillectomy (DC) Add. Discharge Instructions: Continue frequent ice water rinses, gentle gargles. Daily stool softeners if you are having to take prescribed pain medications. If the bleeding recurs today and does not lessen with the Ice water, call Dr Evans's office and return to the ER for re-evaluation. Follow up as scheduled with your primary provider and Dr Evans's office. Copy Copies To 1: LEVY EVANS MD, KATHRYN M MD May 22, 2022 07:09
[2022-05-22 07:29] LABS: BASOPHILS # (AUTO) 0.1 10^3/uL (0.0-0.1); BASOPHILS % (AUTO) 1 % (0-10); EOSINOPHILS # (AUTO) 0.3 10^3/uL (0.0-0.3); EOSINOPHILS % (AUTO) 3 % (0-10); HEMATOCRIT 38 % (35-52); HEMOGLOBIN 12.3 g/dL (11.5-16.0); LYMPHOCYTES # (AUTO) 2.4 10^3/uL (1.0-4.0); LYMPHOCYTES % (AUTO) 27 % (12-44); MEAN CORPUSCULAR HEMOGLOBIN 30 pg (25-34); MEAN CORPUSCULAR HGB CONC 33 g/dL (32-36); MEAN CORPUSCULAR VOLUME 92 fL (80-99); MEAN PLATELET VOLUME 9.5 fL (9.0-12.2); MONOCYTES # (AUTO) 0.6 10^3/uL (0.0-1.0); MONOCYTES % (AUTO) 7 % (0-12); NEUTROPHILS # (AUTO) 5.4 10^3/uL (1.8-7.8); NEUTROPHILS % (AUTO) 62 % (42-75); PLATELET COUNT 388 10^3/uL (130-400); WHITE BLOOD COUNT 8.8 10^3/uL (4.3-11.0)
[2022-05-22] MEDS ORDERED: ONDANSETRON 4 MG/2 ML (SDV) Z0FRAN IVP ONE (07:30)
[2022-05-22] MEDS ORDERED: NS IV 1000 ML 1,000 ML ONE (07:38)
[2022-05-22] MEDS ORDERED: NS IV 1000 ML 1,000 ML IV SCH (07:45)
[2022-05-22 08:30] VITALS: BP 110/72
== END 2022-05-22 08:30 | disposition home or self-care (01) ==
LOC: EDUNIT# 06:53 → ER 06:55
DX: K91.871 Postprocedural hematoma of a digestive system organ or structure following other procedure (principal); Z90.89 Acquired absence of other organs; Z28.310 Unvaccinated for COVID-19
CPT/HCPCS: 36415; 85025